=== PATIENT | female | born 1970 ===

== ENCOUNTER 2018-03-09 08:54 | Day surgery (SDC) | payer OTHER ==
[2018-03-09 09:52] VITALS: BP 126/85; PULSE 62; RESP 20; TEMP 97.3; O2SAT 100
--- NOTE | 2018-03-09 12:32 | CP.SDSHP ---
Same Day Surgery H & P - History Proposed Procedure: US guided FNA right thyroid nodule Pre-Op Diagnosis: Thyroid nodule - Allergies Allergies: Allergies No Known Allergies Allergy (Verified 03/09/18 09:37) - Physical Exam Vital Signs: Vital Signs 03/09/18 09:07 Temperature 97.3 F L Pulse Rate 62 Respiratory 20 Rate Blood Pressure 126/85 O2 Sat by Pulse 100 Oximetry Mental Status: Alert & Oriented x3 - Impression Impression: Pt referred for thyroid FNA. US performed showed nodule up to 8 mm. There are no nodules > 1 cm present. No FNA will be performed. Pt. Evaluated Today:Candidate for Anesthesia & Procedure: No Short Stay Discharge - Short Stay Discharge Admitting Diagnosis/Reason for Visit: DX:THYROID NODULE- E04.1 Disposition: HOME/ ROUTINE
== END 2018-03-09 12:26 | disposition home or self-care (01) ==
LOC: C.SPRAD 08:54
PROVIDERS: ATTEND Radiology Vascular & Interventional Radiology
DX: E04.1 Nontoxic single thyroid nodule (principal); Z53.8 Procedure and treatment not carried out for other reasons
CPT/HCPCS: 10022; 76536; P000X